=== PATIENT | male | born 1965 | race Two or more races ===

== ENCOUNTER 2023-07-18 20:30 | Inpatient (IN) | payer OTHER ==
[2023-07-18 20:47] VITALS: BMI 24.6
[2023-07-18] MEDS ORDERED: TRIMETHOBENZAMIDE HCL 200MG/2ML INJ IM ONE ×2 (20:57→21:11)
[2023-07-18] MEDS ORDERED: ONDANSETRON *ODT* 4 MG TABLET SL PRN (21:08)
[2023-07-18] MEDS ORDERED: BISMUTH SUBSALICYLATE 524 MG/30 ML PO PRN (21:08)
[2023-07-18] MEDS ORDERED: MAGNESIUM HYDROX 2400MG/30ML ORAL SUSPENSION 30 ML CUP PO PRN (21:08)
[2023-07-18] MEDS ORDERED: LOPERAMIDE HCL 2 MG CAPSULE PO PRN (21:08)
[2023-07-18] MEDS ORDERED: MAG HYDROX/AL HYDROX/SIMETH 30 ML UNIT-DOSE CUP PO PRN (21:08)
[2023-07-18] MEDS ORDERED: BENZOCAINE/MENTHOL (CHLORASEPTIC ) LOZENGE MM PRN (21:08)
[2023-07-18] MEDS ORDERED: NALOXONE HCL 0.4 MG/ML VIAL IM PRN (21:08)
[2023-07-18] MEDS ORDERED: NALOXONE HCL (KLOXXADO) 8 MG SPRAY NS PRN (21:08)
[2023-07-18] MEDS ORDERED: DICYCLOMINE HCL 10 MG CAPSULE PO PRN (21:08)
[2023-07-18] MEDS ORDERED: guaiFENesin 600 MG TABLET.ER (FP) PO PRN (21:08)
[2023-07-18] MEDS ORDERED: POLYETHYLENE GLYCOL (HEALTHYLAX) 3350 17 GM PACKET PO PRN (21:08)
[2023-07-18] MEDS ORDERED: IBUPROFEN 400 MG TABLET (FP) PO PRN (21:08)
[2023-07-18] MEDS ORDERED: BENZONATATE 200 MG CAPSULE PO PRN (21:08)
[2023-07-18] MEDS ORDERED: ACETAMINOPHEN 325 MG TABLET (FP) PO PRN (21:08)
[2023-07-18] MEDS ORDERED: FAMOTIDINE 20 MG TABLET PO ONE ×2 (21:17→22:30)
[2023-07-18] MEDS ORDERED: LORazepam 2 MG/ML SDV VIAL IM ONE (21:22)
[2023-07-18] MEDS ORDERED: MELATONIN 5 MG TABLETS PO SCH (22:00)
[2023-07-18] MEDS: chlordiazePOXIDE HCL 25 MG CAPSULE PO SCH (22:42)
[2023-07-18] MEDS: THIAMINE HCL 100 MG TABLET (FP) PO SCH (22:42)
[2023-07-19] MEDS: chlordiazePOXIDE HCL 25 MG CAPSULE PO SCH ×4 (05:35→22:04)
[2023-07-19] MEDS: METHOCARBAMOL 500 MG TABLET PO PRN (07:27)
[2023-07-19] MEDS: IBUPROFEN 600 MG TABLET (FP) PO PRN (08:26)
[2023-07-19] MEDS: PANTOPRAZOLE 20 MG TABLET PO SCH (10:06)
[2023-07-19] MEDS: PRENATAL VITAMINS W/ FOLIC ACID TABLET (FP) PO SCH (10:06)
[2023-07-19 12:17] LABS: POTASSIUM 3.1 mmol/L (3.5-5.1)
[2023-07-19 12:21] LABS: HEMATOCRIT 43.4 % (35.4-49); HEMOGLOBIN 14.9 GM/dL (11.7-16.9); MCH 31.9 pg (25.7-33.7); MCHC 34.2 g/dl (32.0-35.9); MEAN CELL VOLUME 93.2 fl (80-96); MEAN PLT VOLUME 10.1 fl (7.5-11.1); PLATELET COUNT 165 10^3/uL (134-434); RBC 4.66 M/mm3 (4.00-5.60); RDW 13.5 % (11.9-15.9); WHITE BLOOD COUNT 6.7 K/mm3 (4.0-10.0)
[2023-07-19 12:22] LABS: ALBUMIN 3.9 g/dl (3.4-5.0); CALCIUM 8.9 mg/dL (8.5-10.1)
[2023-07-19 12:23] LABS: BLOOD UREA NITROGEN 13.6 mg/dL (7-18)
[2023-07-19 12:27] LABS: BILIRUBIN,TOTAL 2.6 mg/dL (0.2-1); TOT PROT 6.7 g/dl (6.4-8.2)
[2023-07-19] MEDS ORDERED: POTASSIUM CHLORIDE ORAL LIQUID 20 MEQ/15 ML PO ONE (13:00)
[2023-07-19] MEDS: chlordiazePOXIDE HCL 25 MG CAPSULE PO PRN ×2 (13:19→20:18)
[2023-07-19] MEDS: hydrOXYzine PAMOATE 25 MG CAPSULE (FP) PO PRN (15:50)
[2023-07-19] MEDS ORDERED: cloNIDine HCL 0.1 MG TABLET PO PRN (15:58)
[2023-07-19] MEDS ORDERED: PATIENT'S OWN MEDICATION (NON-FORMULARY) (Omeprazole 20 MG Capsule.Dr) PO SCH (16:00)
[2023-07-19] MEDS: LOSARTAN POTASSIUM 25 MG TABLET PO SCH (17:10)
[2023-07-19] MEDS: MELATONIN 5 MG TABLETS PO SCH (22:05)
[2023-07-19] MEDS: THIAMINE HCL 100 MG TABLET (FP) PO SCH (22:05)
[2023-07-20] MEDS: chlordiazePOXIDE HCL 25 MG CAPSULE PO SCH ×2 (05:43→10:07)
[2023-07-20] MEDS: PANTOPRAZOLE 20 MG TABLET PO SCH (10:07)
[2023-07-20] MEDS: LOSARTAN POTASSIUM 25 MG TABLET PO SCH (10:07)
[2023-07-20] MEDS: PRENATAL VITAMINS W/ FOLIC ACID TABLET (FP) PO SCH (10:07)
[2023-07-20] MEDS: hydrOXYzine PAMOATE 25 MG CAPSULE (FP) PO PRN (11:37)
[2023-07-20] MEDS: METHOCARBAMOL 500 MG TABLET PO PRN ×2 (11:37→22:27)
[2023-07-20] MEDS: diazePAM 5 MG TABLET PO PRN (13:37)
[2023-07-20] MEDS: diazePAM 5 MG TABLET PO SCH ×2 (17:09→22:28)
[2023-07-20] MEDS: THIAMINE HCL 100 MG TABLET (FP) PO SCH (22:27)
[2023-07-20] MEDS: MELATONIN 5 MG TABLETS PO SCH (22:27)
[2023-07-21] MEDS ORDERED: chlordiazePOXIDE HCL 10 MG CAPSULE PO PRN
[2023-07-21] MEDS: IBUPROFEN 600 MG TABLET (FP) PO PRN (04:19)
[2023-07-21] MEDS: METHOCARBAMOL 500 MG TABLET PO PRN ×2 (04:21→22:01)
[2023-07-21] MEDS ORDERED: chlordiazePOXIDE HCL 10 MG CAPSULE PO SCH (05:00)
[2023-07-21] MEDS: diazePAM 5 MG TABLET PO SCH ×3 (05:15→22:02)
[2023-07-21] MEDS: PANTOPRAZOLE 20 MG TABLET PO SCH (09:50)
[2023-07-21] MEDS: PRENATAL VITAMINS W/ FOLIC ACID TABLET (FP) PO SCH (09:50)
[2023-07-21] MEDS: LOSARTAN POTASSIUM 25 MG TABLET PO SCH (09:50)
[2023-07-21] MEDS: diazePAM 5 MG TABLET PO PRN (16:32)
[2023-07-21] MEDS: hydrOXYzine PAMOATE 25 MG CAPSULE (FP) PO PRN (22:01)
[2023-07-21] MEDS: MELATONIN 5 MG TABLETS PO SCH (22:01)
[2023-07-21] MEDS: THIAMINE HCL 100 MG TABLET (FP) PO SCH (22:02)
[2023-07-22] MEDS ORDERED: chlordiazePOXIDE HCL 10 MG CAPSULE PO SCH (05:00)
[2023-07-22] MEDS: diazePAM 5 MG TABLET PO SCH ×2 (05:43→17:20)
[2023-07-22] MEDS: PANTOPRAZOLE 20 MG TABLET PO SCH (10:08)
[2023-07-22] MEDS: LOSARTAN POTASSIUM 25 MG TABLET PO SCH (10:08)
[2023-07-22] MEDS: PRENATAL VITAMINS W/ FOLIC ACID TABLET (FP) PO SCH (10:08)
[2023-07-22] MEDS: hydrOXYzine PAMOATE 25 MG CAPSULE (FP) PO PRN (10:55)
[2023-07-22] MEDS: THIAMINE HCL 100 MG TABLET (FP) PO SCH (21:59)
[2023-07-22] MEDS: MELATONIN 5 MG TABLETS PO SCH (21:59)
[2023-07-22] MEDS: diazePAM 5 MG TABLET PO PRN (22:01)
[2023-07-22] MEDS: METHOCARBAMOL 500 MG TABLET PO PRN (22:01)
[2023-07-23] MEDS ORDERED: chlordiazePOXIDE HCL 10 MG CAPSULE PO ONE (05:00)
[2023-07-23] MEDS ORDERED: diazePAM 5 MG TABLET PO ONE (06:00)
[2023-07-23] MEDS: PRENATAL VITAMINS W/ FOLIC ACID TABLET (FP) PO SCH (09:19)
[2023-07-23] MEDS: LOSARTAN POTASSIUM 25 MG TABLET PO SCH (09:19)
[2023-07-23] MEDS: PANTOPRAZOLE 20 MG TABLET PO SCH (09:19)
[2023-07-23 09:20] VITALS: BP 94/73; PULSE 110; RESP 17; TEMP 97.3
== END 2023-07-23 09:27 | disposition home or self-care (01) | DRG 775 ==
LOC: YASAS 20:30 → Y3N 21:32
PROVIDERS: ADMIT Allergy & Immunology; ATTEND Surgery
PROC: HZ2ZZZZ Detoxification Services for Substance Abuse Treatment (ICD-10-PCS; principal; 2023-07-18)
DX: F10.230 Alcohol dependence with withdrawal, uncomplicated (principal); F10.282 Alcohol dependence with alcohol-induced sleep disorder; F32.A Depression, unspecified; E87.6 Hypokalemia; I10 Essential (primary) hypertension; K21.9 Gastro-esophageal reflux disease without esophagitis
CPT/HCPCS: 36415; 80053; 80307; 84132; 85027; 86780; 87635; 93005; 93010